=== PATIENT | male | born 1980 | race Caucasian/White ===

== ENCOUNTER 2020-10-31 14:13 | Emergency (ER) | payer BC ==
--- NOTE | 2020-10-31 14:20 | EDM.PDOC ---
ED HPI GENERAL MEDICAL PROBLEM - General Chief Complaint: General Stated Complaint: chest pain coughing up blood Time Seen by Provider: 10/31/20 14:15 Source of Information: Reports: Patient History Limitations: Reports: No Limitations - History of Present Illness INITIAL COMMENTS - FREE TEXT/NARRATIVE: 39-year-old male past medical history recent COVID-19 infection presents for hemoptysis and right-sided chest pain. Patient notes that he was working pulling a heavy propane hose when he feels like he may have strained his a right arm. He has noted pain in his right anterior chest worse with deep breathing and a feeling that he cannot take a deep breath then. This morning he coughed up a large amount of mucus and blood. He is also feeling short of breath. He denies any lower extremity pain or swelling. No history of blood clots. right chest Pain Score (Numeric/FACES): 6 - Related Data Allergies Allergy/AdvReac Type Severity Reaction Status Date / Time No Known Allergies Allergy Verified 10/31/20 14:14 Home Meds: Home Meds Azithromycin [Zithromax] 250 mg PO ASDIRECTED #6 tab 10/31/20 [Rx] Cyclobenzaprine [Flexeril] 10 mg PO Q6H PRN #20 tablet 10/31/20 [Rx] Past Medical History - Infectious Disease History Infectious Disease History: Reports: Chicken Pox - Past Surgical History Musculoskeletal Surgical History: Reports: Other (See Below) Other Musculoskeletal Surgeries/Procedures:: left arm sx Social & Family History - Tobacco Use Tobacco Use Status *Q: Never Tobacco User - Caffeine Use Caffeine Use: Reports: None - Recreational Drug Use Recreational Drug Use: No ED ROS GENERAL - Review of Systems Review Of Systems: Comprehensive ROS is negative, except as noted in HPI. ED EXAM, GENERAL - Physical Exam Exam: See Below Exam Limited By: No Limitations General Appearance: Alert, WD/WN, No Apparent Distress Throat/Mouth: Normal Voice, No Airway Compromise Head: Atraumatic, Normocephalic Neck: Normal Inspection Respiratory/Chest: No Respiratory Distress, Lungs Clear, Normal Breath Sounds, No Accessory Muscle Use Cardiovascular: Normal Peripheral Pulses, Regular Rate, Rhythm Extremities: Normal Inspection Neurological: Alert, Normal Gait Psychiatric: Normal Affect, Normal Mood Skin Exam: Warm, Dry, Intact, Normal Color Course - Vital Signs Last Recorded V/S: Last Vital Signs Temp 96.5 F L 03/09/21 14:14 Pulse 90 10/31/20 16:00 Resp 18 10/31/20 16:00 BP 118/77 10/31/20 16:00 Pulse Ox 98 10/31/20 16:00 - Orders/Labs/Meds Orders: Active Orders 24 hr Category Date Time Status Sodium Chloride 0.9% [Saline Flush] Med 10/31/20 14:25 Active 10 ml FLUSH ASDIRECTED PRN Sodium Chloride 0.9% [Saline Flush] Med 10/31/20 14:25 Active 2.5 ml FLUSH ASDIRECTED PRN Saline Lock Insert [OM.PC] Stat Oth 10/31/20 14:25 Ordered Labs: Laboratory Tests 10/31/20 10/31/20 10/31/20 Range/Units 14:45 14:45 14:45 WBC 12.68 H (4.0-11.0) K/uL RBC 4.65 (4.50-5.90) M/uL Hgb 14.9 (13.0-17.0) g/dL Hct 41.7 (38.0-50.0) % MCV 89.7 (80.0-98.0) fL MCH 32.0 (27.0-32.0) pg MCHC 35.7 (31.0-37.0) g/dL RDW Std Deviation 40.3 (28.0-62.0) fl RDW Coeff of José 12 (11.0-15.0) % Plt Count 465 H (150-400) K/uL MPV 9.20 (7.40-12.00) fL Neut % (Auto) 74.5 (48.0-80.0) % Lymph % (Auto) 14.3 L (16.0-40.0) % [place] % (Auto) 10.5 (0.0-15.0) % Eos % (Auto) 0.5 (0.0-7.0) % Baso % (Auto) 0.2 (0.0-1.5) % Neut # (Auto) 9.5 H (1.4-5.7) K/uL Lymph # (Auto) 1.8 (0.6-2.4) K/uL [place] # (Auto) 1.3 H (0.0-0.8) K/uL Eos # (Auto) 0.1 (0.0-0.7) K/uL Baso # (Auto) 0.0 (0.0-0.1) K/uL Nucleated RBC % 0.0 /100WBC Nucleated RBCs # 0 K/uL INR APTT 26.7 (18.6-31.3) SEC D-Dimer, Quantitative (0.0-0.50) mg/L FEU Sodium 138 (136-148) mmol/L Potassium 3.9 (3.5-5.1) mmol/L Chloride 103 (98-107) mmol/L Carbon Dioxide 27.2 (21.0-32.0) mmol/L BUN 13 (7.0-18.0) mg/dL Creatinine 1.4 H (0.8-1.3) mg/dL Est Cr Clr Drug Dosing 72.24 mL/min Estimated GFR (MDRD) 57.0 ml/min Glucose 102 (74-106) mg/dL Calcium 8.8 (8.5-10.1) mg/dL Total Bilirubin 0.8 (0.2-1.0) mg/dL AST 13 L (15-37) IU/L ALT 28 (14-63) IU/L Alkaline Phosphatase 75 (46-116) U/L Troponin I < 0.050 (0.000-0.056) ng/mL Total Protein 7.7 (6.4-8.2) g/dL Albumin 3.2 L (3.4-5.0) g/dL Globulin 4.5 H (2.6-4.0) g/dL Albumin/Globulin Ratio 0.7 L (0.9-1.6) 10/31/20 Range/Units 14:45 WBC (4.0-11.0) K/uL RBC (4.50-5.90) M/uL Hgb (13.0-17.0) g/dL Hct (38.0-50.0) % MCV (80.0-98.0) fL MCH (27.0-32.0) pg MCHC (31.0-37.0) g/dL RDW Std Deviation (28.0-62.0) fl RDW Coeff of José (11.0-15.0) % Plt Count (150-400) K/uL MPV (7.40-12.00) fL Neut % (Auto) (48.0-80.0) % Lymph % (Auto) (16.0-40.0) % [place] % (Auto) (0.0-15.0) % Eos % (Auto) (0.0-7.0) % Baso % (Auto) (0.0-1.5) % Neut # (Auto) (1.4-5.7) K/uL Lymph # (Auto) (0.6-2.4) K/uL [place] # (Auto) (0.0-0.8) K/uL Eos # (Auto) (0.0-0.7) K/uL Baso # (Auto) (0.0-0.1) K/uL Nucleated RBC % /100WBC Nucleated RBCs # K/uL INR 1.06 APTT (18.6-31.3) SEC D-Dimer, Quantitative 3.27 H (0.0-0.50) mg/L FEU Sodium (136-148) mmol/L Potassium (3.5-5.1) mmol/L Chloride (98-107) mmol/L Carbon Dioxide (21.0-32.0) mmol/L BUN (7.0-18.0) mg/dL Creatinine (0.8-1.3) mg/dL Est Cr Clr Drug Dosing mL/min Estimated GFR (MDRD) ml/min Glucose (74-106) mg/dL Calcium (8.5-10.1) mg/dL Total Bilirubin (0.2-1.0) mg/dL AST (15-37) IU/L ALT (14-63) IU/L Alkaline Phosphatase (46-116) U/L Troponin I (0.000-0.056) ng/mL Total Protein (6.4-8.2) g/dL Albumin (3.4-5.0) g/dL Globulin (2.6-4.0) g/dL Albumin/Globulin Ratio (0.9-1.6) - Re-Assessments/Exams Free Text/Narrative Re-Assessment/Exam: 10/31/20 14:28 We will get labs including D-dimer to rule out pulmonary embolism. Will get chest x-ray. Will give Flexeril for muscle spasm. We will follow up results and disposition accordingly 10/31/20 15:39 Patient's D-dimer is markedly elevated. Will get CTA to rule out blood clot. Departure - Departure Time of Disposition: 17:07 Disposition: Home, Self-Care 01 Condition: Good Clinical Impression: Chest pain Qualifiers: Chest pain type: chest pain on breathing Qualified Code(s): R07.1 - Chest pain on breathing PNA (pneumonia) Qualifiers: Pneumonia type: due to unspecified organism Laterality: unspecified laterality Lung location: unspecified part of lung Qualified Code(s): J18.9 - Pneumonia, unspecified organism - Discharge Information Prescriptions: Cyclobenzaprine [Flexeril] 10 mg PO Q6H PRN #20 tablet PRN Reason: muscle spasm Azithromycin [Zithromax] 250 mg PO ASDIRECTED #6 tab Referrals: PCP,None [Primary Care Provider] - Forms: ED Department Discharge Additional Instructions: The following information is given to patients seen in the emergency department who are being discharged to home. This information is to outline your options for follow-up care. We provide all patients seen in our emergency department with a follow-up referral. The need for follow-up, as well as the timing and circumstances, are variable depending upon the specifics of your emergency department visit. If you don't have a primary care physician on staff, we will provide you with a referral. We always advise you to contact your personal physician following an emergency department visit to inform them of the circumstance of the visit and for follow-up with them and/or the need for any referrals to a consulting sp ecialist. The emergency department will also refer you to a specialist when appropriate. This referral assures that you have the opportunity for follow-up care with a specialist. All of these measure are taken in an effort to provide you with optimal care, which includes your follow-up. Under all circumstances we always encourage you to contact your private physician who remains a resource for coordinating your care. When calling for follow-up care, please make the office aware that this follow-up is from your recent emergency room visit. If for any reason you are refused follow-up, please contact the [facility] Emergency Department at and asked to speak to the emergency department charge nurse. Please follow up with your primary care physician. If you do not have a primary care physician, see below: [facility] [address], [place] [address] My [facility] [address] [place] [address] [facility] [address] [place] [address] Sepsis Event Note (ED) - Evaluation Sepsis Screening Result: No Definite Risk - Focused Exam Vital Signs: Vital Signs Temp Pulse Resp BP Pulse Ox 10/31/20 16:00 90 18 118/77 98 10/31/20 14:14 96.5 F L 93 18 95 - My Orders Last 24 Hours: My Active Orders 10/31/20 14:25 Sodium Chloride 0.9% [Saline Flush] 10 ml FLUSH ASDIRECTED PRN Sodium Chloride 0.9% [Saline Flush] 2.5 ml FLUSH ASDIRECTED PRN Saline Lock Insert [OM.PC] Stat - Assessment/Plan Last 24 Hours: My Active Orders 10/31/20 14:25 Sodium Chloride 0.9% [Saline Flush] 10 ml FLUSH ASDIRECTED PRN Sodium Chloride 0.9% [Saline Flush] 2.5 ml FLUSH ASDIRECTED PRN Saline Lock Insert [OM.PC] Stat
[2020-10-31] MEDS ORDERED: Sodium Chloride 0.9% 10 ML Syringe FLUSH PRN (14:25)
[2020-10-31] MEDS ORDERED: Sodium Chloride 0.9% 2.5 ML Syringe FLUSH PRN (14:25)
[2020-10-31] MEDS ORDERED: Cyclobenzaprine 10 MG Tab PO ONE (14:26)
--- NOTE | 2020-10-31 15:15 | CR ---
INDICATION: Right-sided chest pain and hemoptysis. Recent COVID-19 infection. TECHNIQUE: Upright portable AP image of the chest. COMPARISON: None. FINDINGS: Lungs low in volume with crowded markings. Questionable hazy/patchy opacity in the periphery of the lungs. No pleural effusion. Heart size and pulmonary vasculature within normal limits. No significant bony abnormality. IMPRESSION: Lungs low in volume with crowded markings. Questionable hazy/patchy opacity in the periphery of the lungs, possibly related to COVID-19 pneumonia. Dictated by Jarad De Oliveira MD @ Oct 31 2020 3:12PM Signed by Dr. Jarad De Oliveira @ Oct 31 2020 3:14PM
[2020-10-31 15:24] LABS: BLOOD UREA NITROGEN,BUN 13 mg/dL (7.0-18.0); CHLORIDE,CL 103 mmol/L (98-107); GLUCOSE RANDOM 102 mg/dL (74-106); POTASSIUM,K 3.9 mmol/L (3.5-5.1); SODIUM,NA 138 mmol/L (136-148)
[2020-10-31 15:27] LABS: CARBON DIOXIDE,CO2 27.2 mmol/L (21.0-32.0)
[2020-10-31] MEDS ORDERED: Iopamidol 755 MG/ML 500 ML Multipack Bottle IVPUSH STA (16:17)
--- NOTE | 2020-10-31 16:48 | CT ---
Indication: Chest pain, coughing up bloody Technique: Volumetric multidetector CT images of the chest were obtained after the administration of IV contrast. 100 cc Isovue low osmolar intravenous contrast Comparison: None available. Findings: The thoracic inlet and thyroid gland are unremarkable. The thoracic aorta is nonaneurysmal. There is no central filling defect to suggest pulmonary embolism. There are reactive appearing mediastinal and hilar lymph nodes. There is mild central bronchial thickening and minimal mucoid impaction of the lower lobe bronchi. There peripheral ground-glass and airspace opacities seen throughout the bilateral hemithoraces likely representing developing multifocal infiltrates. There is no pneumothorax. There is no evidence of pulmonary mass or suspicious pulmonary nodule. The partially visualized upper abdominal viscera are within normal limits. The thoracic vertebral body heights are grossly maintained with minimal endplate Schmorl`s defects. There is no significant spondylolisthesis or displaced fracture. Impression: Extensive peripheral ground-glass airspace opacities seen throughout the bilateral hemithoraces predominantly within the lung bases likely representing developing multifocal infiltrates. Correlate with history of small virus exposure. No evidence of pulmonary embolus. Please note that all CT scans at this facility use dose modulation, iterative reconstruction, and/or weight-based dosing when appropriate to reduce radiation dose to as low as reasonably achievable. Dictated by Thong Miranda MD @ Oct 31 2020 4:38PM Signed by Dr. Thong Miranda @ Oct 31 2020 4:47PM
== END 2020-10-31 17:26 | disposition home or self-care (01) ==
LOC: MW.ED 14:13
DX: J18.9 Pneumonia, unspecified organism (principal); R79.1 Abnormal coagulation profile; Z86.16 Personal history of COVID-19
CPT/HCPCS: 36415; 71045; 71275; 80053; 84484; 85025; 85379; 85610; 85730; 99285; Q9967; 99283

== ENCOUNTER 2020-11-01 08:16 | Emergency (ER) | payer BC ==
[2020-11-01] MEDS ORDERED: Sodium Chloride 0.9% 10 ML Syringe FLUSH PRN (08:23)
[2020-11-01] MEDS ORDERED: Sodium Chloride 0.9% 2.5 ML Syringe FLUSH PRN (08:23)
[2020-11-01] MEDS ORDERED: Sodium Chloride 0.9% 1,000 ML IV ONE (08:25)
[2020-11-01] MEDS ORDERED: Ketorolac 30 MG/ML SDV IVPUSH ONE (08:40)
--- NOTE | 2020-11-01 08:52 | EDM.PDOC ---
ED HPI GENERAL MEDICAL PROBLEM - General Chief Complaint: Chest Pain Stated Complaint: CHEST PAIN Time Seen by Provider: 11/01/20 08:25 - History of Present Illness INITIAL COMMENTS - FREE TEXT/NARRATIVE: History of present illness: [Patient is a 40-year-old male presenting to the ED with shortness of breath and chest pain x1 day. Patient states that he was recently released back to work after recovering from COVID-19. Patient states that 2 days ago he was pulling something and hurt his right shoulder blade. Patient states that the pain in his right shoulder blade is constant, worsening, and has been nonradiating. Patient states that he has tried topical icy hot, Tylenol, Aleve, aspirin without significant reduction of symptoms. Patient states that he made an appointment to see a physician for his shoulder blade pain yesterday and has since developed shortness of breath and pain to the right of his sternum. Patient states he is unable to take a full breath without feeling a stabbing pain in his chest and is unable to lie flat due to shortness of breath. Patient pain to the ED yesterday and was diagnosed with pneumonia and was given azithromycin and Flexeril for pain. Patient states the Flexeril has not alleviated his pain. Patient states that the symptoms from yesterday's visit to the ED are the same but much worse.] The wording of the above paragraph was done for the PA. I agree with all those findings except that the patient has intolerable pain for hours during the night tonight and this morning. He has no findings to suggest he has any cardiac risk other than the fact that he has some EKG changes and no prior EKG. His cardiac score is one. Pleuritic and reproducible with movement and breathing. Review of systems: As per history of present illness and below otherwise all systems reviewed and negative. Past medical history: As per history of present illness and as reviewed below otherwise noncontributory. Surgical history: As per history of present illness and as reviewed below otherwise noncontributory. Social history: No reported history of drug or alcohol abuse. Family history: As per history of present illness and as reviewed below otherwise noncontributory. Physical exam: Constitutional - well developed, well-nourished and in mild acute distress. Patient is notably uncomfortable on exam and is unable to lie flat. HEENT - normocephalic, no evidence of trauma - external nose and mouth normal - no mass in neck and no JVD - mucosae moist EYES - full EOM, PERRL, no icterus - no evidence of inflammation, injection, or drainage Respiratory -patient is unable to fully inspire due to pain. Exam limited due to pain. Otherwise patient appears in no respiratory distress. Equal bilateral expansion, lungs clear to auscultation and no abnormal lung sounds I agree with the above findings per the PA. However when he talks he does take a deep inspiration between sentences and I can tell that his breath sounds are equal. Cardiovascular - Regular Rhythm with S1 and S2 appreciated and no murmur, gallop or rub. No JVD noted. GI - abdomen soft without distension or organomegaly - normal bowel sounds - no guard or rebound Musculoskeletal no gross deformity of long bones or joints - no tenderness, swelling or edema Neurologic - Alert and oriented times four - CN II-XII grossly intact - motor sensory and coordination symmetrically normal Psychiatric - appropriate mood and affect with normal thought content Hematologic - No petechiae or purpura - mucosa appropriate color and sclera not pale - normal nail bed color and refill Integument - no rash or evidence of trauma - normal turgor Diagnostics: [] Therapeutics: [] Impression: [] Plan: [] Definitive disposition and diagnosis as appropriate pending reevaluation and review of above. Right chest, shoulder Pain Score (Numeric/FACES): 8 - Related Data Allergies Allergy/AdvReac Type Severity Reaction Status Date / Time No Known Allergies Allergy Verified 10/31/20 14:14 Home Meds: Home Meds Azithromycin [Zithromax] 250 mg PO DAILY #6 tablet 10/31/20 [Rx] Cyclobenzaprine [Flexeril] 10 mg PO Q6H PRN #20 tablet 10/31/20 [Rx] methylPREDNISolone [Medrol Dose Pack] 4 mg PO DAILY #21 tab 11/01/20 [Rx] Past Medical History - Past Health History Medical/Surgical History: Denies Medical/Surgical History - Infectious Disease History Infectious Disease History: Reports: Chicken Pox, Novel Coronavirus - Past Surgical History Musculoskeletal Surgical History: Reports: Other (See Below) Other Musculoskeletal Surgeries/Procedures:: left arm sx Social & Family History - Family History Family Medical History: No Pertinent Family History - Tobacco Use Tobacco Use Status *Q: Never Tobacco User - Caffeine Use Caffeine Use: Reports: None - Recreational Drug Use Recreational Drug Use: No ED ROS GENERAL - Review of Systems Review Of Systems: Comprehensive ROS is negative, except as noted in HPI. ED EXAM, GENERAL - Physical Exam Exam: See Below Free Text/Narrative:: My physical exam is in the HPI #1 Interpretation EKG Interpretation Comments: EKG done at 815 hours and seen at 821. There is a normal sinus however it is a sinus tachycardia with a rate of 100 nonspecific T wave abnormalities with inversion in the precordium the OR is 148 the axis is 11 the QT is 114. There is no prior for comparison. Impression T wave inversion in the precordium otherwise no obvious acute injury or arrhythmia Course - Vital Signs Last Recorded V/S: Last Vital Signs Temp 36.6 C 11/01/20 08:23 Pulse 103 H 11/01/20 08:23 Resp 22 H 11/01/20 08:23 BP 117/71 11/01/20 08:23 Pulse Ox 94 L 11/01/20 08:23 - Orders/Labs/Meds Orders: Active Orders 24 hr Category Date Time Status EKG Documentation Completion [RC] AM Care 11/01/20 08:23 Active Sodium Chloride 0.9% [Saline Flush] Med 11/01/20 08:23 Active 10 ml FLUSH ASDIRECTED PRN Sodium Chloride 0.9% [Saline Flush] Med 11/01/20 08:23 Active 2.5 ml FLUSH ASDIRECTED PRN Saline Lock Insert [OM.PC] Stat Oth 11/01/20 08:24 Ordered Labs: Laboratory Tests 11/01/20 11/01/20 Range/Units 08:25 08:25 WBC 11.45 H (4.0-11.0) K/uL RBC 4.51 (4.50-5.90) M/uL Hgb 14.2 (13.0-17.0) g/dL Hct 40.8 (38.0-50.0) % MCV 90.5 (80.0-98.0) fL MCH 31.5 (27.0-32.0) pg MCHC 34.8 (31.0-37.0) g/dL RDW Std Deviation 41.0 (28.0-62.0) fl RDW Coeff of José 13 (11.0-15.0) % Plt Count 443 H (150-400) K/uL MPV 9.20 (7.40-12.00) fL Neut % (Auto) 71.6 (48.0-80.0) % Lymph % (Auto) 16.6 (16.0-40.0) % [place] % (Auto) 11.2 (0.0-15.0) % Eos % (Auto) 0.4 (0.0-7.0) % Baso % (Auto) 0.2 (0.0-1.5) % Neut # (Auto) 8.2 H (1.4-5.7) K/uL Lymph # (Auto) 1.9 (0.6-2.4) K/uL [place] # (Auto) 1.3 H (0.0-0.8) K/uL Eos # (Auto) 0.1 (0.0-0.7) K/uL Baso # (Auto) 0.0 (0.0-0.1) K/uL Nucleated RBC % 0.0 /100WBC Nucleated RBCs # 0 K/uL Sodium 136 (136-148) mmol/L Potassium 3.7 (3.5-5.1) mmol/L Chloride 100 (98-107) mmol/L Carbon Dioxide 26.2 (21.0-32.0) mmol/L BUN 13 (7.0-18.0) mg/dL Creatinine 1.4 H (0.8-1.3) mg/dL Est Cr Clr Drug Dosing 73.87 mL/min Estimated GFR (MDRD) 56.7 ml/min Glucose 140 H (74-106) mg/dL Calcium 8.4 L (8.5-10.1) mg/dL Total Bilirubin 0.6 (0.2-1.0) mg/dL AST 9 L (15-37) IU/L ALT 24 (14-63) IU/L Alkaline Phosphatase 69 (46-116) U/L Troponin I < 0.050 (0.000-0.056) ng/mL Total Protein 7.7 (6.4-8.2) g/dL Albumin 3.1 L (3.4-5.0) g/dL Globulin 4.6 H (2.6-4.0) g/dL Albumin/Globulin Ratio 0.7 L (0.9-1.6) - Radiology Interpretation Free Text/Narrative:: 9:26 AM the patient got relief with Toradol. His x-ray was manipulated on the PACS machine and I cannot find any small evidence of pneumothorax. The patient had no acute clearing of the small amount of infiltrate in the base. That was on the right side. Patient is comfortable now and discharged with a prescription for steroids and follow-up this morning at the clinic. Departure - Departure Time of Disposition: 09:21 Disposition: Home, Self-Care 01 Condition: Good Clinical Impression: Pleurisy Prescriptions: methylPREDNISolone [Medrol Dose Pack] 4 mg PO DAILY #21 tab Referrals: PCP,None [Primary Care Provider] - Forms: ED Department Discharge Additional Instructions: [facility] - Primary Care [address] [place] [address] [id number] [address] [id number] The following information is given to patients seen in the emergency department who are being discharged to home. This information is to outline your options for follow-up care. We provide all patients seen in our emergency department with a follow-up referral. The need for follow-up, as well as the timing and circumstances, are variable depending upon the specifics of your emergency department visit. If you don't have a primary care physician on staff, we will provide you with a referral. We always advise you to contact your personal physician following an emergency department visit to inform them of the circumstance of the visit and for follow-up with them and/or the need for any referrals to a consulting specialist. The emergency department will also refer you to a specialist when appropriate. This referral assures that you have the opportunity for follow-up care with a specialist. All of these measure are taken in an effort to provide you with optimal care, which includes your follow-up. Under all circumstances we always encourage you to contact your private physician who remains a resource for coordinating your care. When calling for follow-up care, please make the office aware that this follow-up is from your recent emergency room visit. If for any reason you are refused follow-up, please contact the [facility] Emergency Department at and asked to speak to the emergency department charge nurse. Sepsis Event Note (ED) - Evaluation Sepsis Screening Result: Possible Sepsis Risk - Focused Exam Vital Signs: Vital Signs Temp Pulse Resp BP Pulse Ox 11/01/20 08:23 36.6 C 103 H 22 H 117/71 94 L - My Orders Last 24 Hours: My Active Orders 11/01/20 08:23 EKG Documentation Completion [RC] AM Sodium Chloride 0.9% [Saline Flush] 10 ml FLUSH ASDIRECTED PRN Sodium Chloride 0.9% [Saline Flush] 2.5 ml FLUSH ASDIRECTED PRN 11/01/20 08:24 Saline Lock Insert [OM.PC] Stat - Assessment/Plan Last 24 Hours: My Active Orders 11/01/20 08:23 EKG Documentation Completion [RC] AM Sodium Chloride 0.9% [Saline Flush] 10 ml FLUSH ASDIRECTED PRN Sodium Chloride 0.9% [Saline Flush] 2.5 ml FLUSH ASDIRECTED PRN 11/01/20 08:24 Saline Lock Insert [OM.PC] Stat
[2020-11-01 08:57] LABS: BLOOD UREA NITROGEN,BUN 13 mg/dL (7.0-18.0); CARBON DIOXIDE,CO2 26.2 mmol/L (21.0-32.0); CHLORIDE,CL 100 mmol/L (98-107); GLUCOSE RANDOM 140 mg/dL (74-106); POTASSIUM,K 3.7 mmol/L (3.5-5.1); SODIUM,NA 136 mmol/L (136-148)
--- NOTE | 2020-11-01 09:07 | CR ---
Indication: Pleurisy after injury Technique: Chest 1 view Comparison: CT chest October 31, 2020 Findings/Impression: Cardiovascular and mediastinum: Heart size and vasculature are normal in caliber and appearance. Lungs and pleural space: No pneumothorax. Small ill-defined infiltrates or atelectasis are again demonstrated and most prominent in the right lung base. Bones and soft tissues: No acute findings. Dictated by Igor Han MD @ Nov 01 2020 9:03AM Signed by Dr. Igor Han @ Nov 01 2020 9:04AM
== END 2020-11-01 09:30 | disposition home or self-care (01) ==
LOC: MW.ED 08:16
DX: R09.1 Pleurisy (principal)
CPT/HCPCS: 36415; 71045; 80053; 84484; 85025; 96374; 99285; J1885; J7030; 93010; 99283